=== PATIENT | male | born 1975 | race Caucasian/White ===

== ENCOUNTER 2020-05-12 07:36 | Emergency (ER) | payer OTHER ==
[2020-05-12 07:54] VITALS: BP 112/76
[2020-05-12] MEDS ORDERED: BUFFERED LIDOCAINE 10 ML SYRINGE SUBQ STA (08:21)
--- NOTE | 2020-05-12 09:04 | ED Physician Documentation ---
PD HPI UPPER EXT INJURY - Stated complaint Stated Complaint: L PINKY FINGER LAC - Chief complaint Chief Complaint: Laceration - History obtained from History obtained from: Patient - History of Present Illness Location: Left, Finger (5th) Where injury occurred: Home Timing - onset: Today Timing - duration: Minutes Timing - details: Abrupt onset, Still present Improved by: Rest, Immobilization Worsened by: Moving, Palpating Associated symptoms: No: Weakness, Numbness, Tingling Contributing factors: No: Anticoagulated Similar symptoms before: Diagnosis (laceration) Recently seen: Not recently seen - Additonal information Additional information: Previously well 45-year-old male was cleaning his [place] press coffee machine today when the glass broke and he lacerated his left fifth digit.He is up-to-date on his immunizations had a tetanus booster 1-1/2 years ago Review of Systems Constitutional: denies: Fever Eyes: denies: Decreased vision Nose: denies: Congestion Throat: denies: Sore throat Respiratory: denies: Dyspnea, Cough GI: denies: Vomiting Skin: reports: Laceration (s) PD PAST MEDICAL HISTORY - Present Medications Home Medications: Ambulatory Orders Medication Instructions Recorded Confirmed Finasteride 1 tab DAILY 05/12/20 05/12/20 - Allergies Allergies/Adverse Reactions: Allergies Allergy/AdvReac Type Severity Reaction Status Date / Time No Known Drug Allergies Allergy Verified 05/12/20 07:54 PD ED PE NORMAL - Vitals Vital signs reviewed: Yes (Normal) - General General: Alert and oriented X 3, No acute distress, Well developed/nourished - HEENT HEENT: Atraumatic, PERRL, EOMI - Respiratory Respiratory: No respiratory distress - Derm Derm: Normal color, Warm and dry, No rash - Extremities Extremities: Other (There is a 3 cm flap laceration to the left fifth digit distal phalange volar surface. There is no foreign material in the wound and there is no damage to the nail.) - Neuro Neuro: Alert and oriented X 3, manager hardware 2-12 intact, No motor deficit, No sensory deficit, Normal speech Eye Opening: Spontaneous Motor: Obeys Commands Verbal: Oriented GCS Score: 15 - Psych Psych: Normal mood, Normal affect Results - Vitals Vitals: Vital Signs - 24 hr 05/12/20 07:49 Temperature 36.2 C L Heart Rate 68 Respiratory 16 Rate Blood Pressure 112/76 O2 Saturation 100 Oxygen O2 Source Room air Procedures - Laceration (location) Left fifth digit Length in cm: 3 Wound type: Curved, Flap, Clean Neurovascular status: Sensory intact, Motor intact, Vascular intact Tendon involvement: Tendon intact Anesthesia: Lidocaine 1%, With bicarb Wound Preparation: Hibiclens, Irrigated copiously NS, Wound explored, To the base Skin layer closure: Nylon, Interrupted, Size #-0 - enter number (5-0) Other: Patient tolerated well, No complications, Neurovascular intact, Dressing applied, Tetanus UTD Complexity: Simple PD MEDICAL DECISION MAKING - ED course Complexity details: considered differential, d/w patient ED course: 45-year-old male laceration to the left fifth digit has sutures placed will need suture removal in 7 to 10 days. Departure - Departure Disposition: 01 Home, Self Care Clinical Impression: Finger laceration Qualifiers: Encounter type: initial encounter Finger: little finger Damage to nail status: without damage Foreign body presence: without foreign body Laterality: left Qualified Code(s): S61.217A - Laceration without foreign body of left little finger without damage to nail, initial encounter Condition: Stable Instructions: ED Laceration Hand Follow-Up: [facility] [Provider Group] Comments: Sutures will need to be removed in 7 to 10 days.
== END 2020-05-12 09:30 | disposition home or self-care (01) ==
LOC: ED 07:36
DX: S61.217A Laceration without foreign body of left little finger without damage to nail, initial encounter (principal); W25.XXXA Contact with sharp glass, initial encounter; Y93.E9 Activity, other interior property and clothing maintenance; Y92.009 Unspecified place in unspecified non-institutional (private) residence as the place of occurrence of the external cause
CPT/HCPCS: 12002; 99282; 99283